=== PATIENT | female | born 1975 | race Caucasian/White ===

== ENCOUNTER 2022-06-08 06:33 | Day surgery (SDC) | payer OTHER ==
[~2022-06-08] VITALS: Ht 157.5 cm; Wt 59.0 kg
[2022-06-08] MEDS ORDERED: diphenhydrAMINE 50 MG/ML VIAL ONE (07:09)
[2022-06-08] MEDS ORDERED: MIDAZOLAM 5 MG/5 ML VIAL ONE (07:10)
[2022-06-08] MEDS ORDERED: fentaNYL citrate 0.05 MG/ML VIAL ONE (07:10)
[2022-06-08] MEDS ORDERED: LIDOCAINE 2% 100 MG/5 ML UJET TP ONE (07:10)
[2022-06-08] MEDS ORDERED: MIDAZOLAM 5 MG/5 ML VIAL IV ONE (08:30)
[2022-06-08] MEDS ORDERED: fentaNYL citrate 0.05 MG/ML VIAL IVP ONE (08:30)
== END 2022-06-08 09:40 | disposition home or self-care (01) ==
LOC: MMU 06:33 → MDS 06:33
PROVIDERS: ATTEND Internal Medicine Gastroenterology
DX: Z12.11 Encounter for screening for malignant neoplasm of colon (principal); K63.5 Polyp of colon; K62.1 Rectal polyp; K57.30 Diverticulosis of large intestine without perforation or abscess without bleeding; Z20.822 Contact with and (suspected) exposure to COVID-19; Z79.899 Other long term (current) drug therapy
CPT/HCPCS: 45385; 87426; J2250; J3010; J1200